=== PATIENT | female | born 1985 | race Caucasian/White ===

== ENCOUNTER 2024-06-10 12:13 | Inpatient (IN) ==
[~2024-06-10 12:13] MED LIST: AZITHROMYCIN 500 MG in DEXTROSE 5% 250 ML IV SCH; ceFAZolin 2000MG 2,000 MG/15 ML SYR IV SCH
[2024-06-10] MEDS ORDERED: LIDOCAINE 1% LOCAL 20 ML VIAL INFIL PRN (12:26)
[2024-06-10] MEDS ORDERED: OXYTOCIN 30 UNITS/NSS 30 UNITS/500 ML BAG IV PRN (12:26)
[2024-06-10] MEDS ORDERED: LACTATED RINGER'S 1,000 ML IV PRN (12:26)
[2024-06-10 13:22] LABS: Hematocrit (blood only) 32.3 % (37.0-47.0); Hemoglobin 10.9 g/dl (12.0-16.0); Mean Corpuscular Hemoglobin 31.1 pg (25.0-34.0); Mean Corpuscular Hgb Conc 33.7 g/dL (32.0-36.0); Mean Corpuscular Volume 92.3 fL (80.0-100.0); Mean Platelet Volume 9.4 fL (9.4-12.4); Platelet Count 272 K/uL (130-400); RDW Coefficient of Variation 12.3 % (11.5-14.5); White Blood Count 9.07 K/ul (4.8-10.8)
--- NOTE | 2024-06-10 17:08 | Anesthesiology Consultation ---
Date of Service June 10, 2024 Assessment & Plan (1) Encounter for pre-operative examination: Chart Review Chart Review: Acceptable Risk for Surgery and Patient NOT seen in Pre Admission Testing Consults Requested none History Surgery Operation Date: 06/10/24 17:10 Proposed Procedures p Section in LD - J. Elvin Rivera MD, FACOG Height/Weight Height: 5 ft 3.78 in Weight: 78.925 kg Allergies Allergy/AdvReac Type Severity Reaction Status Date / Time G6PD deficiency Allergy Unknown Uncoded 06/10/24 11:38 Medications Home Medications Medication Instructions Recorded Confirmed Last Taken [id number] 1 tab PO 11/08/23 06/10/24 06/09/24 [] Past Medical History Medical History (Updated 06/10/24 @ 17:08 by Lupillo Trujillo MD) Encounter for pre-operative examination G6PD deficiency Past Family History Family History Mother Breast cancer Denies family history of Ovarian cancer Prostate cancer Diabetes Dementia Depression Heart disease Myocardial infarction Lung cancer Colorectal cancer Hypertension Stroke Past Surgical History Surgical History History of dilation and curettage Social History Smoking Status: Never smoker Do You Dip or Chew Tobacco: No Hx Alcohol Use: No Hx Substance Use: No substance use type: does not use Physical Exam Vital Signs Last Vital Signs Temp 36.5 C 06/10/24 15:57 Pulse 87 06/10/24 16:40 Resp 14 06/10/24 15:57 BP 121/55 L 06/10/24 16:40 Pulse Ox 99 06/10/24 14:00 Testing Laboratory Results 06/10/24 12:57
[2024-06-10] MEDS ORDERED: fentaNYL citrate PF 100 MCG/2 ML VIAL ONE ×2 (17:22→17:29)
[2024-06-10] MEDS ORDERED: PHENYLEPHRINE 100MCG/ML 10ML SYR IV ONE (17:28)
[2024-06-10] MEDS ORDERED: OXYTOCIN 10 UNITS/ML VIAL ONE (17:28)
[2024-06-10] MEDS ORDERED: SUCCINYLCHOLINE CHLORIDE 20 MG/ML 10 ML VIAL IV ONE (17:28)
[2024-06-10] MEDS ORDERED: DEXAMETHASONE SOD INJ 4 MG/ML VIAL ONE (17:28)
[2024-06-10] MEDS ORDERED: ONDANSETRON INJ 2 MG/ML 2 ML VIAL ONE (17:28)
[2024-06-10] MEDS ORDERED: PROPOFOL IV EMULSION 10 MG/ML 20 ML VIAL IV ONE (17:28)
[2024-06-10] MEDS ORDERED: PROMETHAZINE HCL 6.25 MG in SODIUM CHLORIDE 0.9% 50 ML IV PRN (17:42)
[2024-06-10] MEDS ORDERED: fentaNYL citrate PF 100 MCG/2 ML VIAL IV PRN (17:42)
[2024-06-10] MEDS ORDERED: ATROPINE SULFATE 0.1 MG/ML 10ML SYR IV PRN (17:42)
[2024-06-10] MEDS ORDERED: ONDANSETRON INJ 2 MG/ML 2 ML VIAL IV PRN ×2 (17:42→18:23)
[2024-06-10] MEDS ORDERED: ePHEDrine sulfate 50 MG/ML AMP IV PRN (17:42)
[2024-06-10 17:52] LABS: Base Excess Cord Venous Blood -4.1 mEq/L (-7.7-1.9); Cord Venous Blood HCO3 22 mmol/L (18.4-26.8); Cord Venous Blood PCO2 44 mmHg (30.4-57.2); Cord Venous Blood PO2 31 mmHg (14.1-43.3); Cord Venous Blood pH 7.31 (7.20-7.44); O2 Saturation Cord Venous Bld 69.6 % (<68)
[2024-06-10 17:53] LABS: Base Excess Cord Arterial Bld -4.2 mEq/L (-9-1.8); CO2 Cord Arterial Blood 54 mmHg (39.1-73.5); HCO3 Cord Arterial Blood 24 mmol/L (19.7-28.5); Oxygen Sat Cord Arterial Blood < 60.0 % (<60); PO2 Cord Arterial Blood < 20 mmHg (4.1-31.7); pH Cord Arterial Blood 7.25 (7.1-7.38)
[2024-06-10] MEDS ORDERED: NALOXONE HCL 0.4 MG/1 ML VIAL/CARP IV PRN (17:55)
[2024-06-10] MEDS ORDERED: SODIUM CHLORIDE 0.9% 1,000 ML IV SCH (18:00)
--- NOTE | 2024-06-10 18:07 | XRay Report ---
KUB CLINICAL HISTORY: Intraoperative radiograph. No instrument count was performed. FINDINGS: 2 AP, portable, supine abdominal radiographs are obtained. No prior studies are available f or comparison at the time of dictation. No radiodense/metallic foreign body is identified to suggest retained surgical implement. No bowel obstruction is seen. There is moderate colonic fecal retention. The imaged bony structures appear intact. IMPRESSION: No radiodense/metallic foreign body is seen to suggest retained surgical implement. Electronically signed by: Sravan Lopez M.D. 06/10/2024 5:59 PM
[2024-06-10] MEDS ORDERED: SENNA 8.6 MG TAB PO PRN (18:23)
[2024-06-10] MEDS ORDERED: PROMETHAZINE 12.5 MG/50.5 ML BAG IV PRN (18:23)
[2024-06-10] MEDS ORDERED: LACTATED RINGER'S 1,000 ML IV SCH (18:23)
[2024-06-10] MEDS ORDERED: CALCIUM CARBONATE 500 MG CHEWABLE TAB PO PRN (18:23)
[2024-06-10] MEDS ORDERED: diphenhydrAMINE Capsule 25 MG CAP PO PRN (18:23)
[2024-06-10] MEDS ORDERED: BENZOCAINE 20% SPRY 85 APPLN/85 GM CAN EXT PRN (18:23)
[2024-06-10] MEDS ORDERED: HYDROCORTISONE ACETATE 25 MG SUPP PR PRN (18:23)
[2024-06-10] MEDS ORDERED: diphenhydrAMINE 50 MG/ML VIAL IV PRN (18:23)
[2024-06-10] MEDS ORDERED: MAGNESIUM HYDROXIDE SUSP 30 ML UDC PO PRN (18:23)
[2024-06-10] MEDS ORDERED: HYDROmorphone INJ 0.5 MG/0.5 ML SYR IV PRN (18:23)
--- NOTE | 2024-06-10 18:25 | Anesthesiology Progress Note ---
Date of Service June 10, 2024 Anesthesia Post Procedure Vital Signs Vital Signs: Temp Pulse Resp BP Pulse Ox 06/10/24 18:21 96 H 06/10/24 18:21 124/60 06/10/24 18:20 100 06/10/24 18:20 98 H 06/10/24 18:15 99 06/10/24 18:15 100 H 06/10/24 18:15 90 06/10/24 18:15 104 H 06/10/24 16:40 87 06/10/24 16:40 121/55 L 06/10/24 15:57 36.5 C 61 14 06/10/24 15:17 103 H 06/10/24 15:17 131/65 06/10/24 14:31 16 06/10/24 14:31 16 06/10/24 14:10 80 06/10/24 14:10 121/57 L 06/10/24 14:00 36.6 C 16 99 06/10/24 12:37 36.6 C 93 H 16 127/60 98 06/10/24 12:33 93 H 127/60 Transfer of Care Handoff Completed per policy Notes Mental Status: alert / awake / arousable and participated in evaluation Patient Amnestic to Procedure: Yes Nausea / Vomiting: adequately controlled Pain: adequately controlled Airway Patency, RR, SpO2: stable & adequate BP & HR: stable & adequate Hydration State: stable & adequate Anesthetic Complications: no major complications apparent and Pt Satisfied with anesthetic care
[2024-06-10] MEDS: HYDROmorphone INJ 1 MG/ML SYRINGE IV PRN (18:32)
[2024-06-10] MEDS: DIPHTHER/TETAN/PERTUS Vaccine (Tdap, Adol/Adult) 0.5mL IM ONE (18:45)
[2024-06-10] MEDS: HYDROmorphone PCA 30 MG/30 ML IV PRN (18:59)
[2024-06-10] MEDS: OXYTOCIN 20 UNITS/LR 1,002 ML IV SCH (20:16)
--- NOTE | 2024-06-10 20:28 | Operative Report ---
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 Quantitative Blood Loss (QBL) 472 Findings Consistent with Post-Op Diagnosis Specimens cord gases, cord blood Description of Procedure Patient diagnosed in active labor at 9 cm in alda breech presentation this was confirmed by ultrasound verbal consent was obtained for a section patient agreed risks were briefly discussed but the urgency of the situation did not allow for a detailed discussion she was given a general anesthetic prep was with Betadine she had a Calles catheter in her bladder Scalpel was used to make a Pfannenstiel incision on the lower abdomen. We then cut through the subcutaneous fat down to the level of the anterior rectus sheath fascia this was cut in the midline and then extended laterally with the curved Ferreira scissors. At this stage we then placed 2 Nasra clamps on the anterior aspect of the fascia. Using the curved Ferreira's we are able to dissect the fascia superiorly away from the rectus muscles. Care was taken to maintain hemostasis. Nasra clamps were then placed to the inferior aspect of the anterior sheath of the fascia. Fascia was then dissected away from the rectus muscles inferiorly towards the pubic bone. A Nasra was then placed in the midline both inferiorly and superiorly. This was to allow exposure by retraction rectus muscles were in the midline with were then able to cut through the peritoneum and then enter the peritoneal cavity. Opening was enlarged to allow exposure of the peritoneal cavity both superiorly and inferiorly. Once adequate space was obtained a bladder retractor was placed to expose the lower segment Metzenbaums were used to dissect the bladder flap inferiorly away from the uterus. This was done sharply bladder retractor was then repositioned to expose the lower segment of the uterus Fresh scalpel was used to make a low transverse incision on the uterus. Uterus was then entered bluntly with the operators finger, membranes ruptured and the opening was enlarged using the operators fingers bluntly pulling superiorly and inferiorly to allow exposure. Baby was alda breech I was able to elevate the pelvis and then deliver the baby's breech through the incision rotating the back anterior and then gentle traction was able to the liver without any excess effort easy delivery live v . Fluid was clear cord clamped and cut cord gases obtained cord blood obtained baby handed to pediatrics. Placenta removed was removed with traction we ensure the entire placenta was removed with a moist lap sponge into the uterus Uterus was then exteriorized. IV Pitocin had been started by anesthesia tone improved there were no extensions the uterus was then closed using 0 Monocryl in a 2 layer closure the first layer closed in a running locked fashion from left to right and then a second closure from left to right in a running nonlocked fashion. At this stage hemostasis was excellent. Uterus was placed back in the peritoneal cavity with suction irrigation out and inspection of the uterus at this stage revealed excellent hemostasis Retractors were removed urine color was clear at this stage of the case we inspected the rectus muscles they were hemostatic fascia was closed with 0 Vicryl subcutaneous fat was irrigated and closed with 3-0 Vicryl skin closed with 4-0 subcuticular Monocryl There was not time to do a sponge and instrument count so an x-ray was performed there was no sponges or incidents visible by me or by radiology Dr. Lopez I attest to the content of the Intraoperative Record and any orders documented t herein. Any exceptions are noted below. OB Procedure Charges 26116
[2024-06-10] MEDS: DOCUSATE SODIUM 100 MG CAP PO SCH (21:56)
[2024-06-10] MEDS: IBUPROFEN 600 MG TAB PO SCH (21:56)
[2024-06-10] MEDS: ACETAMINOPHEN 325 MG TAB PO SCH (21:56)
[2024-06-10] MEDS: SIMETHICONE 80 MG CHEW PO SCH (21:57)
[2024-06-11 06:28] LABS: Basophils # (auto) 0.01 K/uL (0.00-0.20); Basophils % (auto) 0.1 %; Eosinophils # (auto) 0.01 K/uL (0.00-0.50); Eosinophils % (auto) 0.1 %; Hematocrit (blood only) 31.7 % (37.0-47.0); Hemoglobin 10.6 g/dl (12.0-16.0); Immature Granulocytes # (auto) 0.07 K/uL (0.01-0.20); Immature Granulocytes % (auto) 0.5 %; Lymphocytes # (auto) 1.47 K/uL (1.20-3.40); Lymphocytes % (auto) 9.6 %; Mean Corpuscular Hgb Conc 33.4 g/dL (32.0-36.0); Mean Corpuscular Volume 92.7 fL (80.0-100.0); Mean Platelet Volume 9.5 fL (9.4-12.4); Monocytes # (auto) 0.78 K/uL (0.11-0.59); Monocytes % (auto) 5.1 %; Neutrophils # (auto) 12.91 K/uL (1.40-6.50); Neutrophils % (auto) 84.6 %; Platelet Count 251 K/uL (130-400); RDW Standard Deviation 40.7 fL (36.4-46.3); Red Blood Count 3.42 M/uL (4.20-5.40); White Blood Count 15.25 K/ul (4.8-10.8)
--- NOTE | 2024-06-11 07:34 | Obstetrical Progress Note ---
Date of Service <Flaco Moreno MD - Last Filed: 06/11/24 07:41> June 11, 2024 Assessment & Plan <Flaco Moreno MD - Last Filed: 06/11/24 07:41> (1) Encounter for assessment: visit type: exam and care immediately after delivery Qualified Code(s): Z39.0 - Encounter for care and examination of mother immediately after delivery Plan Pt is a 39 y/o female who is now PPD#1 following LTCS ( breech presentation) at 40 weeks. PPD 1: stable, routine management -Patient Stewart is in voiding ok and minimal ambulating. 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 * D/C Stewart * encouraged to ambulate and hydrate well. * 6 weeks OB outpatient follow-up <Ulisses Rivera MD, FACOG - Last Filed: 06/12/24 14:01> (1) Encounter for assessment: Subjective <Flaco Moreno MD - Last Filed: 06/11/24 07:41> Ambulation: limited ambulation Voiding: no voiding problems and stewart catheter in place Diet Tolerance:: regular diet Lochia:: Moderate Feeding Type:: breast feeding Pt is a 39 y/o female who is now PPD#1 following LTCS at 40 weeks. Reports feeling well overall this morning. minimal abdominal cramping and 2/10 pain, well managed on analgesics. Voiding with stewart. Tolerating meals and limited ambulation. passing gas but no bowel movements yet Some persistent lochia with overall improvement as of this morning. Breast feeding. Review of Systems -Denies fever or chills -Denies dyspnea, chest pain, or palpitations -Denies breast pain -Denies dysuria -Denies headache or changes in vision Physical Exam <Flaco Moreno MD - Last Filed: 06/11/24 07:41> General: Alert and oriented. No acute distress Cardiac: Regular rate and rhythm, no murmurs appreciated Respiratory: Lungs clear to auscultation bilaterally, No increased work of breathing Abdominal: Soft, non-tender, non-distended. Bowel sounds present. Uterus: Uterine fundus firm, palpable below umbilicus, surgical scar clean no signs of bleeding or infection. Extremities: No lower extremity edema, calves non-tender bilaterally Results & Data <Flaco Moreno MD - Last Filed: 06/11/24 07:41> Vital Signs (Past 12 Hours) Vital Signs Temp Pulse Pulse Resp BP BP Pulse Ox 06/11/24 03:13 36.9 C 87 18 125/71 97 06/11/24 00:15 36.7 C 87 16 125/71 95 06/10/24 20:45 18 94 06/10/24 20:45 06/10/24 20:45 36.6 C 81 18 117/69 94 06/10/24 20:21 94 06/10/24 20:21 96 H 06/10/24 20:20 94 06/10/24 20:20 94 H 06/10/24 20:15 95 06/10/24 20:15 82 06/10/24 20:12 94 06/10/24 20:12 81 06/10/24 20:11 18 06/10/24 20:11 18 06/10/24 20:11 88 06/10/24 20:11 118/58 L 06/10/24 20:10 96 06/10/24 20:10 92 H 06/10/24 20:05 95 06/10/24 20:05 79 06/10/24 20:01 81 06/10/24 20:01 124/59 L 06/10/24 20:00 95 06/10/24 20:00 78 06/10/24 19:55 95 06/10/24 19:55 79 06/10/24 19:51 83 06/10/24 19:51 124/60 06/10/24 19:50 96 06/10/24 19:50 84 06/10/24 19:45 96 06/10/24 19:45 86 06/10/24 19:41 18 06/10/24 19:41 18 06/10/24 19:41 81 06/10/24 19:41 126/56 L 06/10/24 19:40 96 06/10/24 19:40 79 06/10/24 19:35 95 06/10/24 19:35 82 O2 Del Method 06/11/24 03:13 Room Air 06/11/24 00:15 Room Air 06/10/24 20:45 06/10/24 20:45 Room Air 06/10/24 20:45 Room Air 06/10/24 20:21 06/10/24 20:21 06/10/24 20:20 06/10/24 20:20 06/10/24 20:15 06/10/24 20:15 06/10/24 20:12 06/10/24 20:12 06/10/24 20:11 06/10/24 20:11 06/10/24 20:11 06/10/24 20:11 06/10/24 20:10 06/10/24 20:10 06/10/24 20:05 06/10/24 20:05 06/10/24 20:01 06/10/24 20:01 06/10/24 20:00 06/10/24 20:00 06/10/24 19:55 06/10/24 19:55 06/10/24 19:51 06/10/24 19:51 06/10/24 19:50 06/10/24 19:50 06/10/24 19:45 06/10/24 19:45 06/10/24 19:41 06/10/24 19:41 06/10/24 19:41 06/10/24 19:41 06/10/24 19:40 06/10/24 19:40 06/10/24 19:35 06/10/24 19:35 Supervising Physician <Ulisses Rivera MD, FACOG - Last Filed: 06/12/24 14:01> Co-Signing Physician Notes Resident Physician Supervision Note: I was present with DrJulia [Name of resident] during the history and exam. I discussed the case with the resident and agree with the findings and plan as documented in the note. Any exceptions or clarifications are listed here: [None] Documented By: Ulisses Rivera MD, FACOG Resident Activity Tracking <Paranjyothy Asad Moreno MD - Last Filed: 06/11/24 07:41> Resident Involvement: Resident Care Provided Care Provided: OB Delivery
[2024-06-11] MEDS: PRENATAL VITAMIN 1 TAB PO SCH (09:25)
[2024-06-11] MEDS: FERROUS SULFATE 325 MG TAB PO SCH (09:25)
[2024-06-11] MEDS: oxyCODONE HCL IR 5 MG TAB (IMMEDIATE RELEASE) PO PRN (11:19)
[2024-06-11] MEDS: bisacodyL 5 MG TABEC PO SCH (20:04)
[2024-06-12 06:27] LABS: Hematocrit (blood only) 29.9 % (37.0-47.0)
--- NOTE | 2024-06-12 07:28 | Obstetrical Progress Note ---
Date of Service June 12, 2024 Subjective Ambulation: ambulating normally Voiding: no voiding problems Passing Gas:: Yes Diet Tolerance:: regular diet Lochia:: Small Feeding Type:: breast feeding Physical Exam Constitutional WD/WN, vitals as above Eyes PERRL, conjunctivae normal, anicteric sclerae Neck normal visual inspection Respiratory normal respiratory effort and able to speak in complete sentences; no respiratory distress and no labored breathing Cardiovascular Rate/Rhythm: regular rate and regular rhythm Extremities: no edema Chest (Breasts) Chest: normal inspection of chest Gastrointestinal (Abdomen) Inspection/Auscultation: abdomen normal to inspection Soft, postgravid Dressing removed, steris intact Psychiatric A+Ox3, euthymic affect Genitourinary OB Exam Abdomen: + fundal height Fundus: + firm and + relation to umbilicus (fundus just below umbilicus); not tender Results & Data Vital Signs (Past 12 Hours) Vital Signs Temp Pulse Resp BP Pulse Ox O2 Del Method 06/12/24 04:24 98.1 F 72 16 109/68 96 Room Air 06/11/24 21:11 97.9 F 84 16 114/65 98 Room Air
[2024-06-12 10:19] VITALS: PULSE 83; O2SAT 97
[2024-06-12 16:56] VITALS: BP 115/69; RESP 16; TEMP 98.2
[2024-06-12] MEDS ORDERED: IBUPROFEN 600 MG TAB PO PRN (17:45)
[2024-06-12] MEDS ORDERED: bisacodyL 10 MG SUPP PR PRN (17:45)
[2024-06-12] MEDS: ACETAMINOPHEN 325 MG TAB PO PRN (19:14)
--- NOTE | 2024-06-15 15:25 | Discharge Summary ---
Date of Service June 15, 2024 Admission Exam (Per Admitting) Constitutional WD/WN, vitals as above well developed and well nourished Respiratory normal respiratory effort, lungs clear to auscultation normal respiratory effort Cardiovascular RRR, no murmur, no edema Gastrointestinal (Abdomen) normal bowel sounds, soft, nontender, no hepatosplenomegaly Discharge Data Consultations 06/10/24 12:26 Consult Anesthesiology Stat Procedures Performed Operation Date: 06/10/24 17:10 Actual Procedures p Section in LD(Bilateral) - Ulisses [place], [facility] [place] (1) Encounter for assessment: Plan Pt is a 39 y/o female who is now PPD#1 following LTCS ( breech presentation) at 40 weeks. PPD 1: stable, routine management -Patient Calles is in voiding ok and minimal ambulating. 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 * D/C Calles * encouraged to ambulate and hydrate well. * 6 weeks OB outpatient follow-up Supervising Physician Co-Signing Physician Notes Resident Physician Supervision Note: I was present with [Name of resident] during the history and exam. I discussed the case with the resident and agree with the findings and plan as documented in the note. Any exceptions or clarifications are listed here: [None] Documented By: Ulisses Rivera MD, [facility] [place] Level of Care Code None Diagnoses Encounter for care or examination of mother immediately after delivery Z39.0 visit type: exam and care immediately after delivery
== END 2024-06-12 19:25 | disposition home or self-care (01) | DRG 788 ==
LOC: 4S1 12:13 → 4E2 21:48